=== PATIENT | female | born 1950 | race Caucasian/White ===

== ENCOUNTER 2016-12-19 11:22 | Inpatient (IN) | payer OTHER ==
[~2016-12-19] VITALS: Ht 154.9 cm; Wt 76.0 kg
[2016-12-19 12:28] LABS: EOSINOPHIL (%) 1.7 % (0-5); EOSINOPHIL COUNT 0.1 K/uL (0-0.3); HEMATOCRIT 36.4 % (36.0-46.0); IMMATURE GRANULOCYTE (%) 0.7 % (0.0-0.7); IMMATURE GRANULOCYTE COUNT 0.1 K/uL; INSTRUMENT ABS NEUTROPHIL CT 5.1 K/uL; LYMPHOCYTE COUNT 1.7 K/uL (1.0-2.8); MCH 31.1 PG (29.0-34.0); MCHC 34.3 G/DL (30.0-36.0); MCV 90.5 FL (83-99); MEAN PLAT.VOLUME 9.8 uM^3 (9.5-12.4); MONOCYTE (%) 6.7 % (3-12); MONOCYTE COUNT 0.5 K/uL (0-0.8); NEUTROPHIL (%) 67.5 % (45-76); NEUTROPHIL COUNT 5.1 K/uL (1.8-6.4); PLATELET COUNT 234 K/uL (156-360); RBC DIS.WIDTH-CV 13.2 % (11.8-14.6); RBC DIS.WIDTH-SD 43.7 % (39-53); RED BLOOD COUNT 4.02 M/uL (3.80-5.20); WHITE BLOOD COUNT 7.6 K/uL (4.1-10.2)
[2016-12-19 12:37] LABS: PROTHROMBIN TIME 11.4 SEC (10.2-12.9)
[2016-12-19 12:38] LABS: CHLORIDE 96 mEq/L (99-109); POTASSIUM 4.6 mEq/L (3.7-5.4); SODIUM 134 mEq/L (136-147)
[2016-12-19 12:39] LABS: MAGNESIUM 1.9 mg/dL (1.3-2.7)
[2016-12-19 12:40] LABS: GLUCOSE 213 mg/dL (70-99); PTT 26.2 SEC (25-37)
[2016-12-19 12:42] LABS: ANION GAP 12 MEQ/L (2-14)
[2016-12-19 12:44] LABS: GFR ESTIMATE (CALCULATED) 52 mL/min/
[2016-12-19 12:45] LABS: UREA NITROGEN (BUN) 15 mg/dL (9-23)
[2016-12-19 12:51] LABS: TROP-I INTERPRETATION NEGATIVE; TROPONIN-I < 0.01 ng/mL (0.0-0.30)
[2016-12-19] MEDS ORDERED: AMITIZA8 MICROGRA PO (15:15)
[2016-12-19] MEDS ORDERED: ETHACRYNIC ACID25 MG PO (15:16)
[2016-12-19] MEDS ORDERED: COREG25 M1 PO (15:16)
[2016-12-19] MEDS ORDERED: ALLOPURINOL100 MG PO (15:16)
[2016-12-19] MEDS ORDERED: K-DUR20 MEQ PO (15:16)
[2016-12-19] MEDS ORDERED: BUSPAR5 MG PO (15:16)
[2016-12-19] MEDS ORDERED: MIRTAZAPINE30 MG PO (15:17)
[2016-12-19] MEDS ORDERED: PLAVIX75 MG PO (15:17)
[2016-12-19] MEDS ORDERED: GABAPENTIN300 MG PO (15:17)
[2016-12-19] MEDS ORDERED: KEPPRA500 MG PO (15:17)
[2016-12-19] MEDS ORDERED: JANUVIA25 M1 PO (15:17)
[2016-12-19] MEDS ORDERED: FLEXERIL10 MG PO (15:17)
[2016-12-19] MEDS ORDERED: PROAIR HFA8.5 GM IH (15:18)
[2016-12-19] MEDS ORDERED: LANTUS 3 M100 UNITS1 SC (15:18)
[2016-12-19] MEDS ORDERED: MAGNESIUM OXID500 MG PO (15:19)
[2016-12-19] MEDS ORDERED: VITAMIN B-12250 MCG PO (15:20)
[2016-12-19] MEDS ORDERED: CLONIDINE HCL0.1 MG PO (15:20)
[2016-12-19] MEDS ORDERED: CLARITIN,ALAVAR10 MG PO (15:20)
[2016-12-19] MEDS ORDERED: TRAMADOL HCL50 MG PO (15:21)
[2016-12-19 16:45] VITALS: BP 133/63
[2016-12-19 20:19] VITALS: BP 110/53
[2016-12-19 20:21] LABS: TROP-I INTERPRETATION NEGATIVE; TROPONIN-I < 0.01 ng/mL (0.0-0.30)
[2016-12-19 22:56] VITALS: BP 96/51
[2016-12-20 01:50] LABS: TROP-I INTERPRETATION NEGATIVE; TROPONIN-I < 0.01 ng/mL (0.0-0.30)
[2016-12-20 03:25] VITALS: BP 122/58
[2016-12-20 07:42] VITALS: BP 112/55
[2016-12-20 09:08] LABS: MCH 31.4 PG (29.0-34.0); MCHC 34.1 G/DL (30.0-36.0); MCV 91.9 FL (83-99); MEAN PLAT.VOLUME 9.9 uM^3 (9.5-12.4); PLATELET COUNT 228 K/uL (156-360); RBC DIS.WIDTH-CV 13.6 % (11.8-14.6); RBC DIS.WIDTH-SD 45.1 % (39-53); WHITE BLOOD COUNT 7.5 K/uL (4.1-10.2)
[2016-12-20 09:29] LABS: ANION GAP 7 MEQ/L (2-14); CHLORIDE 99 MEQ/L (99-109); GFR ESTIMATE (CALCULATED) 52 mL/min/; GLUCOSE 138 mg/dL (70-99); POTASSIUM 4.5 MEQ/L (3.7-5.4); SAMPLE HEMOLYSIS CHECK 0; SAMPLE ICTERIC CHECK 0; SAMPLE LIPEMIA CHECK 0; SODIUM 134 MEQ/L (136-147); UREA NITROGEN (BUN) 17 mg/dL (9-23)
[2016-12-20 11:39] VITALS: BP 111/56
[2016-12-20 15:53] VITALS: BP 130/60
[2016-12-20 19:59] VITALS: BP 114/58
[2016-12-20 23:21] VITALS: BP 105/56
[2016-12-21 03:47] VITALS: BP 111/62
[2016-12-21 06:07] LABS: POINT-OF-CARE METER ID UU13113725
[2016-12-21 08:13] VITALS: BP 106/57
[2016-12-21 08:13] LABS: ANION GAP 7 MEQ/L (2-14); CHLORIDE 99 MEQ/L (99-109); GFR ESTIMATE (CALCULATED) 59 mL/min/; POTASSIUM 4.4 MEQ/L (3.7-5.4); SAMPLE HEMOLYSIS CHECK 0; SAMPLE ICTERIC CHECK 0; SAMPLE LIPEMIA CHECK 0; SODIUM 135 MEQ/L (136-147); UREA NITROGEN (BUN) 20 mg/dL (9-23)
[2016-12-21 08:19] LABS: GLUCOSE 88 mg/dL (70-99)
[2016-12-21 11:16] VITALS: BP 110/60
[2016-12-21 16:38] LABS: POINT-OF-CARE METER ID UU13113725
[2016-12-21 16:39] VITALS: BP 107/51
[2016-12-21 21:06] VITALS: BP 113/67
[2016-12-22 00:33] VITALS: BP 90/52
[2016-12-22 07:42] VITALS: BP 103/64
[2016-12-22 09:07] LABS: INTERNAL CONTROL VALID? YES
[2016-12-22 10:46] VITALS: BP 106/55
[2016-12-22] MEDS ORDERED: LANTUS 3 M100 UNITS1 SC (14:51)
[2016-12-22] MEDS ORDERED: JANUVIA25 M1 PO (14:51)
[2016-12-22] MEDS ORDERED: TRAMADOL HCL50 MG PO (14:51)
[2016-12-22] MEDS ORDERED: LEVAQUIN500 MG PO (14:51)
[2016-12-22] MEDS ORDERED: AMITIZA8 MICROGRA PO (15:02)
== END 2016-12-22 18:07 | disposition home or self-care (01) | DRG 194 ==
LOC: EME 11:22 → EDOF 14:52 → 5EAST 14:52 → ENRESERV 14:54 → CANRESERV 14:54 → ENRESERV 15:00 → 5EAST 16:40 → ENPENDDIS 12-22 → 5EAST 12-22 18:07
PROVIDERS: Emergency Medicine; Internal Medicine; Student in an Organized Health Care Education/Training Program
DX: J18.9 Pneumonia, unspecified organism (principal); E87.1 Hypo-osmolality and hyponatremia; I11.0 Hypertensive heart disease with heart failure; I50.9 Heart failure, unspecified; R19.7 Diarrhea, unspecified; R94.31 Abnormal electrocardiogram [ECG] [EKG]; E11.9 Type 2 diabetes mellitus without complications; E78.5 Hyperlipidemia, unspecified; G35 Multiple sclerosis; I25.10 Atherosclerotic heart disease of native coronary artery without angina pectoris; I25.2 Old myocardial infarction; E66.9 Obesity, unspecified; Z68.31 Body mass index [BMI] 31.0-31.9, adult; Z79.4 Long term (current) use of insulin; Z82.49 Family history of ischemic heart disease and other diseases of the circulatory system; Z95.5 Presence of coronary angioplasty implant and graft
CPT/HCPCS: 71010; 80048; 82948; 83605; 83735; 83880; 84484; 85025; 85027; 85610; 85730; 87040; 87070; 87205; 87449; 87493; 87502; 93005; 94660; 94760; 94799; 99202; 99281; 99285; J1650; J1815; J1956; J7030

== ENCOUNTER 2017-01-19 13:47 | Observation (INO) | payer OTHER ==
[~2017-01-19] VITALS: Ht 154.9 cm; Wt 79.8 kg
[~2017-01-19 13:47] MED LIST: ALLOPURINOL100 MG PO; AMITIZA8 MICROGRA PO; BUSPAR5 MG PO; CLARITIN,ALAVAR10 MG PO; CLONIDINE HCL0.1 MG PO; COREG25 M1 PO; ETHACRYNIC ACID25 MG PO; FLEXERIL10 MG PO; GABAPENTIN300 MG PO; JANUVIA25 M1 PO; K-DUR20 MEQ PO; KEPPRA500 MG PO; LANTUS 3 M100 UNITS1 SC; LEVAQUIN500 MG PO; MAGNESIUM OXID500 MG PO; MIRTAZAPINE30 MG PO; PLAVIX75 MG PO; PROAIR HFA8.5 GM IH; TRAMADOL HCL50 MG PO; VITAMIN B-12250 MCG PO
[2017-01-19 14:17] LABS: HEMATOCRIT 35.5 % (36.0-46.0); MCH 30.5 PG (29.0-34.0); MCHC 33.5 G/DL (30.0-36.0); MEAN PLAT.VOLUME 9.5 uM^3 (9.5-12.4); PLATELET COUNT 250 K/uL (156-360); RBC DIS.WIDTH-CV 13.5 % (11.8-14.6); RBC DIS.WIDTH-SD 44.6 % (39-53); WHITE BLOOD COUNT 9.4 K/uL (4.1-10.2)
[2017-01-19 14:25] LABS: CHLORIDE 96 mEq/L (99-109)
[2017-01-19 14:26] LABS: POTASSIUM 5.1 mEq/L (3.7-5.4); SODIUM 135 mEq/L (136-147)
[2017-01-19 14:27] LABS: GLUCOSE 173 mg/dL (70-99)
[2017-01-19 14:29] LABS: ANION GAP 12 MEQ/L (2-14)
[2017-01-19 14:31] LABS: GFR ESTIMATE (CALCULATED) 47 mL/min/
[2017-01-19 14:32] LABS: UREA NITROGEN (BUN) 20 mg/dL (9-23)
[2017-01-19 14:37] LABS: TROP-I INTERPRETATION NEGATIVE; TROPONIN-I < 0.01 ng/mL (0.0-0.30)
[2017-01-19 20:48] VITALS: BP 162/69
[2017-01-19 21:12] LABS: POINT-OF-CARE METER ID UU13113831
[2017-01-20 02:48] LABS: TROP-I INTERPRETATION NEGATIVE; TROPONIN-I < 0.01 ng/mL (0.0-0.30)
[2017-01-20 04:40] VITALS: BP 99/51
[2017-01-20 08:43] LABS: POINT-OF-CARE METER ID UU13113700
[2017-01-20 10:28] LABS: TROP-I INTERPRETATION NEGATIVE; TROPONIN-I 0.02 ng/mL (0.0-0.30)
[2017-01-20 11:27] LABS: D-DIMER ELISA < 150.00 ng/mLDDU (<230)
[2017-01-20 12:33] VITALS: BP 102/56
[2017-01-20 13:10] LABS: POINT-OF-CARE METER ID UU13113831
== END 2017-01-20 17:09 | disposition home or self-care (01) ==
LOC: EME 13:47 → EDOF 18:56 → ENRESERV 18:58 → 5WEST 20:29
PROVIDERS: Hospitalist; Physician Assistant Medical
DX: R07.89 Other chest pain (principal); R00.2 Palpitations; I11.0 Hypertensive heart disease with heart failure; I50.9 Heart failure, unspecified; E11.9 Type 2 diabetes mellitus without complications; Z79.4 Long term (current) use of insulin; I25.10 Atherosclerotic heart disease of native coronary artery without angina pectoris; Z95.5 Presence of coronary angioplasty implant and graft; I25.2 Old myocardial infarction; G35 Multiple sclerosis; G50.0 Trigeminal neuralgia; E66.9 Obesity, unspecified; Z86.73 Personal history of transient ischemic attack (TIA), and cerebral infarction without residual deficits; M10.9 Gout, unspecified; E78.5 Hyperlipidemia, unspecified; G89.29 Other chronic pain; Z90.710 Acquired absence of both cervix and uterus; Z90.49 Acquired absence of other specified parts of digestive tract; G47.33 Obstructive sleep apnea (adult) (pediatric); I95.9 Hypotension, unspecified; R94.31 Abnormal electrocardiogram [ECG] [EKG]; M54.9 Dorsalgia, unspecified; Z99.81 Dependence on supplemental oxygen; K21.9 Gastro-esophageal reflux disease without esophagitis; Z79.82 Long term (current) use of aspirin; Z88.2 Allergy status to sulfonamides; Z88.1 Allergy status to other antibiotic agents; Z88.0 Allergy status to penicillin
CPT/HCPCS: 71020; 80048; 82948; 84484; 85027; 85379; 93005; 94660; 99281; 99285; G0378; G8978 GP CH; G8979 GP CH; G8980 GP CH; J1650

== ENCOUNTER 2017-05-02 01:00 | Emergency (ER) | payer OTHER ==
[~2017-05-02] VITALS: Ht 154.9 cm; Wt 76.3 kg
[2017-05-02 01:20] LABS: HEMOGLOBIN 11.4 G/DL (11.9-15.5); MCH 30.8 PG (29.0-34.0); MCHC 33.5 G/DL (30.0-36.0); MCV 91.9 FL (83-99); PLATELET COUNT 243 K/uL (156-360); RBC DIS.WIDTH-CV 13.8 % (11.8-14.6); RBC DIS.WIDTH-SD 46.6 % (39-53); WHITE BLOOD COUNT 7.7 K/uL (4.1-10.2)
[2017-05-02 01:20] LABS: APPEARANCE SL.HAZY ((CLEAR)); BILIRUBIN NEGATIVE; BLOOD NEGATIVE; COLOR YELLOW ((YELLOW)); GLUCOSE (STRIP) NEGATIVE; KETONES NEGATIVE; LEUKOCYTES MODERATE; NITRITE NEGATIVE; PROTEIN (STRIP) NEGATIVE; SPECIFIC GRAVITY 1.016 (1.000-1.030); UROBILINOGEN 0.2 MG/DL (0.2-1.0)
[2017-05-02 01:26] LABS: BACTERIA RARE /HPF; EPITHELIAL CELLS 1+ /HPF; HYALINE CASTS TNTC /LPF; MUCUS TRACE /LPF; RED BLOOD CELLS 0-5 /HPF (0-5); UCUL ADDED? YES; WHITE BLOOD CELLS TNTC /HPF (0-5)
[2017-05-02 01:31] LABS: ALBUMIN 3.9 g/dL (3.2-4.8); CHLORIDE 98 mEq/L (99-109); POTASSIUM 4.4 mEq/L (3.7-5.4); SODIUM 136 mEq/L (136-147)
[2017-05-02 01:33] LABS: GLUCOSE 123 mg/dL (70-99)
[2017-05-02 01:34] LABS: TOTAL PROTEIN 7.1 g/dL (6.4-8.3)
[2017-05-02 01:35] LABS: TOTAL BILIRUBIN 0.4 mg/dL (0.0-1.0)
[2017-05-02 01:37] LABS: ALKALINE PHOSPHATASE 101 IU/L (3-129); CREATININE 1.5 mg/dL (0.6-1.3); GFR ESTIMATE (CALCULATED) 37 mL/min/
[2017-05-02 01:38] LABS: UREA NITROGEN (BUN) 14 mg/dL (9-23)
[2017-05-02 01:39] LABS: AST (GOT) 16 IU/L (2-34)
[2017-05-02 01:40] LABS: ALT (GPT) 10 IU/L (3-49)
[2017-05-02] MEDS ORDERED: NITROFURANTOIN100 MG PO (02:22)
[2017-05-02 03:08] VITALS: BP 148/105
== END 2017-05-02 03:09 | disposition home or self-care (01) ==
LOC: EME 01:00
DX: N12 Tubulo-interstitial nephritis, not specified as acute or chronic (principal); I10 Essential (primary) hypertension; K21.9 Gastro-esophageal reflux disease without esophagitis; E11.9 Type 2 diabetes mellitus without complications; I25.2 Old myocardial infarction; R56.9 Unspecified convulsions; M79.7 Fibromyalgia; F32.9 Major depressive disorder, single episode, unspecified; Z79.02 Long term (current) use of antithrombotics/antiplatelets; Z90.49 Acquired absence of other specified parts of digestive tract; Z90.89 Acquired absence of other organs; Z88.1 Allergy status to other antibiotic agents; Z88.2 Allergy status to sulfonamides; Z88.0 Allergy status to penicillin
CPT/HCPCS: 80053; 81003; 85027; 87086; 99281; 99284

== ENCOUNTER 2017-08-04 12:57 | Observation (INO) | payer OTHER ==
[~2017-08-04] VITALS: Ht 157.5 cm; Wt 76.5 kg
[~2017-08-04 12:57] MED LIST changes: +CYANOCOBALAM1000 MCG PO; -MAGNESIUM OXID500 MG PO; +MAGNESIUM400 MG PO; +NITROFURANTOIN100 MG PO; -VITAMIN B-12250 MCG PO
[2017-08-04 13:40] LABS: HEMATOCRIT 33.8 % (36.0-46.0); HEMOGLOBIN 11.4 G/DL (11.9-15.5); MCH 31.2 PG (29.0-34.0); MCHC 33.7 G/DL (30.0-36.0); MCV 92.6 FL (83-99); PLATELET COUNT 207 K/uL (156-360); RBC DIS.WIDTH-CV 13.3 % (11.8-14.6); RBC DIS.WIDTH-SD 45.5 % (39-53); RED BLOOD COUNT 3.65 M/uL (3.80-5.20); WHITE BLOOD COUNT 8.6 K/uL (4.1-10.2)
[2017-08-04 13:51] LABS: CHLORIDE 99 mEq/L (99-109); POTASSIUM 5.2 mEq/L (3.7-5.4); SODIUM 138 mEq/L (136-147)
[2017-08-04 13:53] LABS: GLUCOSE 116 mg/dL (70-99)
[2017-08-04 13:57] LABS: CREATININE 1.5 mg/dL (0.6-1.3); GFR ESTIMATE (CALCULATED) 37 mL/min/
[2017-08-04 13:58] LABS: UREA NITROGEN (BUN) 22 mg/dL (9-23)
[2017-08-04 14:04] LABS: TROP-I INTERPRETATION NEGATIVE; TROPONIN-I < 0.01 ng/mL (0.0-0.30)
[2017-08-04] MEDS ORDERED: AMITIZA8 MICROGRA PO (15:06)
[2017-08-04] MEDS ORDERED: JANUVIA100 MG PO (15:07)
[2017-08-04] MEDS ORDERED: LANTUS 3 M100 UNITS1 SC (15:08)
[2017-08-04] MEDS ORDERED: DICLOFENAC SODI50 MG PO (15:09)
[2017-08-04 17:19] VITALS: BP 130/66
[2017-08-04 17:32] VITALS: BP 143/67; BP 149/72
[2017-08-04 20:00] VITALS: BP 116/83
[2017-08-04 20:14] LABS: TROP-I INTERPRETATION NEGATIVE; TROPONIN-I < 0.01 ng/mL (0.0-0.30)
[2017-08-04 23:21] VITALS: BP 115/56
[2017-08-05 02:28] LABS: TROP-I INTERPRETATION NEGATIVE; TROPONIN-I < 0.01 ng/mL (0.0-0.30)
[2017-08-05 04:11] VITALS: BP 114/57
[2017-08-05 08:00] VITALS: BP 154/70
[2017-08-05 11:22] VITALS: BP 163/65
[2017-08-05 15:27] VITALS: BP 120/62
[2017-08-05 19:30] VITALS: BP 143/61
== END 2017-08-05 22:01 | disposition home or self-care (01) ==
LOC: EME 12:57 → EDOF 15:47 → ENRESERV 15:50 → 5WEST 17:16
PROVIDERS: Emergency Medicine; Internal Medicine
DX: R07.9 Chest pain, unspecified (principal); R94.31 Abnormal electrocardiogram [ECG] [EKG]; I25.10 Atherosclerotic heart disease of native coronary artery without angina pectoris; E11.9 Type 2 diabetes mellitus without complications; I10 Essential (primary) hypertension; E78.5 Hyperlipidemia, unspecified; G35 Multiple sclerosis; I25.2 Old myocardial infarction; Z90.49 Acquired absence of other specified parts of digestive tract; Z79.02 Long term (current) use of antithrombotics/antiplatelets; Z88.0 Allergy status to penicillin; Z88.1 Allergy status to other antibiotic agents; Z88.2 Allergy status to sulfonamides
CPT/HCPCS: 71046; 80048; 82948; 84484; 85027; 93005; 99281; 99285; G0378; J1650